=== PATIENT | male | born 1970 | race Hispanic/Latino ===

== ENCOUNTER 2022-01-18 10:45 | Emergency (ER) | payer BC, OTHER ==
[~2022-01-18] VITALS: Ht 165.1 cm; Wt 93.4 kg
[2022-01-18] MEDS ORDERED: ACETAMINOPHEN 500 MG TABLET PO ONE (11:00)
[2022-01-18] MEDS ORDERED: TETANUS/DIPHTHERIA TOXOID [ADULT] 0.5 ML VIAL IM ONE (11:00)
[2022-01-18] MEDS ORDERED: 0.9%NACL 1000ML 1,000 ML IV ONE (11:00)
[2022-01-18 11:12] LABS: BASOPHILS % (AUTO) 0.4 % (0.0-5.0); EOSINOPHILS % (AUTO) 0.9 % (0.0-8.0); LYMPHOCYTES % (AUTO) 12.7 % (21.0-51.0); MEAN CORPUSCULAR HEMOGLOBIN 30.1 pg (27.0-33.0); MEAN CORPUSCULAR HGB CONC 34.4 g/dL (32.0-36.0); MEAN CORPUSCULAR VOLUME 87.6 fL (79-99); MONOCYTES % (AUTO) 7.5 % (3.0-13.0); NEUTROPHILS % (AUTO) 78.1 % (40.0-77.0); PLATELET COUNT (AUTO) 205 K/uL (130-400); RED BLOOD CELL COUNT(AUTO) 4.45 MIL/uL (4.50-6.20); RED CELL DISTRIBUTION WIDTH 12.5 % (11.0-15.5); WHITE BLOOD COUNT (AUTO) 11.3 K/uL (4.8-10.8)
[2022-01-18 11:19] LABS: POTASSIUM 3.7 mmol/L (3.5-5.1)
[2022-01-18 11:23] LABS: ALBUMIN 4.2 g/dL (3.5-5.0); BILIRUBIN,TOTAL 0.6 mg/dL (0.2-1.0); TOTAL PROTEIN, SERUM 7.6 g/dL (6.0-8.3)
[2022-01-18] MEDS ORDERED: CLINDAMYCIN IVPB 600MG/50ML 50 ML IV SCH (11:30)
[2022-01-18] MEDS ORDERED: LIDOCAINE HCL-MPF 2% 5ML VIAL ONE (11:43)
[2022-01-18] MEDS ORDERED: CLIN-141 PO (12:19)
[2022-01-18 12:21] VITALS: BP 135/74
== END 2022-01-18 12:57 | disposition home or self-care (01) ==
LOC: EDH 10:45
DX: L02.212 Cutaneous abscess of back [any part, except buttock and flank] (principal); E78.00 Pure hypercholesterolemia, unspecified; I10 Essential (primary) hypertension
CPT/HCPCS: 10060; 36415; 80053; 85025; 87070; 87076; 90471; 90714; 96361; 96374; 99284; J3490 ×2; J7030

== ENCOUNTER 2022-01-23 14:53 | Emergency (ER) | payer BC ==
[~2022-01-23 14:53] MED LIST: CLIN-141 PO
[2022-01-23 15:23] LABS: BASOPHILS % (AUTO) 0.4 % (0.0-5.0); EOSINOPHILS % (AUTO) 1.8 % (0.0-8.0); HEMATOCRIT 39.4 % (42-54); LYMPHOCYTES % (AUTO) 20.6 % (21.0-51.0); MEAN CORPUSCULAR HEMOGLOBIN 29.5 pg (27.0-33.0); MEAN CORPUSCULAR VOLUME 89.3 fL (79-99); MONOCYTES % (AUTO) 11.4 % (3.0-13.0); NEUTROPHILS % (AUTO) 65.3 % (40.0-77.0); PLATELET COUNT (AUTO) 268 K/uL (130-400); RED BLOOD CELL COUNT(AUTO) 4.41 MIL/uL (4.50-6.20); RED CELL DISTRIBUTION WIDTH 12.4 % (11.0-15.5); WHITE BLOOD COUNT (AUTO) 9.3 K/uL (4.8-10.8)
[2022-01-23] MEDS ORDERED: LIDOCAINE HCL 400MG/20ML VIAL ONE (15:23)
[2022-01-23 15:27] VITALS: BP 134/80
[2022-01-23 15:32] LABS: CREATININE 0.9 mg/dL (0.5-1.5)
[2022-01-23 15:37] LABS: ALBUMIN 3.7 g/dL (3.5-5.0); BILIRUBIN,TOTAL 0.3 mg/dL (0.2-1.0)
== END 2022-01-23 16:03 | disposition home or self-care (01) ==
LOC: EDH 14:53
DX: L02.212 Cutaneous abscess of back [any part, except buttock and flank] (principal); E78.00 Pure hypercholesterolemia, unspecified; I10 Essential (primary) hypertension
CPT/HCPCS: 10060; 36415; 80053; 85025; 99283; J3490

== ENCOUNTER 2022-01-25 07:25 | Emergency (ER) | payer BC ==
[2022-01-25 07:33] VITALS: BP 126/80
[2022-01-25] MEDS ORDERED: CEPH500B PO (07:49)
== END 2022-01-25 07:30 | disposition home or self-care (01) ==
LOC: EDH 07:25
DX: L02.212 Cutaneous abscess of back [any part, except buttock and flank] (principal); L25.8 Unspecified contact dermatitis due to other agents; T36.8X5A Adverse effect of other systemic antibiotics, initial encounter; E78.00 Pure hypercholesterolemia, unspecified; I10 Essential (primary) hypertension; Y92.89 Other specified places as the place of occurrence of the external cause

== ENCOUNTER 2024-10-16 15:00 | Inpatient (IN) | payer BC ==
[~2024-10-16] VITALS: Ht 165.1 cm; Wt 93.8 kg
[2024-10-16 15:02] VITALS: BP 150/79; PULSE 85; RESP 18; TEMP 98
[2024-10-16 15:07] LABS: BASOPHILS # (AUTO) 0.05 K/uL (0.00-0.20); BASOPHILS % (AUTO) 0.7 % (0.0-5.0); EOSINOPHILS # (AUTO) 0.14 K/uL (0.00-0.70); HEMATOCRIT 42.6 % (42-54); IMMATURE GRANULOCYTE ABSOLUTE 0.02 K/uL (0-1); LYMPHOCYTES # (AUTO) 2.2 K/uL (1.0-4.8); LYMPHOCYTES % (AUTO) 30.5 % (21.0-51.0); MEAN CORPUSCULAR HGB CONC 34.5 g/dL (32.0-36.0); MEAN CORPUSCULAR VOLUME 89.9 fL (79-99); MONOCYTES # (AUTO) 0.8 K/uL (0.1-1.0); MONOCYTES % (AUTO) 10.6 % (3.0-13.0); NEUTROPHILS % (AUTO) 55.9 % (40.0-77.0); PLATELET COUNT (AUTO) 208 K/uL (130-400); RED BLOOD CELL COUNT(AUTO) 4.74 MIL/uL (4.50-6.20); RED CELL DISTRIBUTION WIDTH 12.4 % (11.0-15.5); WHITE BLOOD COUNT (AUTO) 7.1 K/uL (4.8-10.8)
[2024-10-16 15:16] LABS: INR <= 0.93 (0.85-1.15); PROTHROMBIN TIME 10.3 SEC (9.6-11.6)
[2024-10-16 15:18] LABS: PARTIAL THROMBOPLASTIN TIME 28.5 SEC (26.3-35.5)
[2024-10-16 15:21] LABS: ALBUMIN 4.1 g/dL (3.5-5.0); BILIRUBIN,TOTAL 0.3 mg/dL (0.2-1.0); CREATININE 0.8 mg/dL (0.5-1.3); POTASSIUM 3.7 mmol/L (3.5-5.1); TOTAL PROTEIN, SERUM 7.5 g/dL (6.0-8.3)
--- NOTE | 2024-10-16 20:50 | EKG ---
[facility] Test Date: 2024-10-16 Test Time: 15:48:58 Pat Name: SIMI LAGUNA Department: Patient ID: [id number] Room: Gender: M Mobile Practice Lead: [id number] : 1970 Requested By: ELANA LIMON Order Number: [id number] Reading MD: Davida Armstrong Measurements Intervals [place] Rate: 82 P: 54 MS: 165 QRS: -61 QRSD: 94 T: 74 QT: 360 QTc: 422 Interpretive Statements Sinus rhythm Probable left atrial enlargement Inferior infarct, old No previous ECG available for comparison Electronically Signed On 10-19-2024 15:56:10 ASSESSMENT EXPERT by Davida Armstrong Please click the below link to view image of tracing.
--- NOTE | 2024-10-19 08:42 | NUR ---
RE: EKG REPORTED EKG RESULTS TO DR LEE, NO NEW ORDERS RECEIVED.
[2024-10-20] VITALS (23 sets, daily range): BP systolic 129–162; BP diastolic 70–90; PULSE 21–108; RESP 14–19; TEMP 94.3–100; O2SAT 96–97
[2024-10-20] MEDS: BUPIvacaine/PF 0.5% 30ML VIAL ONE
[2024-10-20] MEDS: LIDOCAINE 1%-EPI 1:100,000 20 ML VIAL ONE
[2024-10-20] MEDS: LIDOCAINE HCL 1% 10 ML VIAL ONE
[2024-10-20] MEDS ORDERED: BUPIvacaine/PF 0.25% 30ML VIAL IJ ONE (07:42)
[2024-10-20] MEDS: LACTATED RINGERS 1000ML 1,000 ML IV ONE (08:11)
[2024-10-20] MEDS ORDERED: GLYCOPYRROLATE 0.2 MG/ML 5 ML VIAL ONE (08:11)
[2024-10-20] MEDS ORDERED: ondanSETRON 4MG INJ ONE (08:11)
[2024-10-20] MEDS ORDERED: LIDOCAINE PF 100MG/5ML (2%) SYRINGE 5ML ONE (08:11)
[2024-10-20] MEDS: MEROPENEM 1 GM VIAL ONE (08:11)
[2024-10-20] MEDS ORDERED: proPOFol 10 MG/ML 20ML VIAL IV ONE (08:11)
[2024-10-20] MEDS ORDERED: NEOSTIGMINE METHYLSULFATE 1MG/ML IV ONE (08:11)
[2024-10-20] MEDS ORDERED: dexaMETHasone SOD PHOSPHATE 10MG/ML 1ML VIAL ONE (08:11)
[2024-10-20] MEDS ORDERED: rocuRONium bROMide 10MG/1ML 5ML VL ONE ×2 (08:12→11:27)
[2024-10-20] MEDS ORDERED: FENTanyl CITRate PF 50 MCG/1 ML 5ML AMP IV ONE (08:12)
[2024-10-20] MEDS ORDERED: MIDAZOLAM HCL 1 MG/ML 2ML VIAL ONE (08:12)
[2024-10-20] MEDS ORDERED: ATOR10TA69 PO (09:12)
[2024-10-20] MEDS ORDERED: AMOX1TAB16 PO (09:12)
[2024-10-20] MEDS ORDERED: LOSA100T59 PO (09:12)
[2024-10-20] MEDS ORDERED: AMLO2.5T4 PO (09:12)
[2024-10-20] MEDS ORDERED: ePHEDrine SULFate 50 MG/ML AMPULE ONE (09:19)
[2024-10-20] MEDS ORDERED: FENTanyl CITRate PF 50 MCG/1 ML 2ML VIAL ONE ×3 (10:15→12:10)
[2024-10-20] MEDS ORDERED: phenylEPHRINE HCL 10 MG/ML 1ML VIAL IV ONE (11:00)
--- NOTE | 2024-10-20 12:57 | OP ---
Operative Note: DATE OF PROCEDURE: 10/20/24 SURGEON: ELANA LIMON MD REEL OPERATOR: None ANESTHESIA: General ANESTHESIOLOGIST/COLLAR POINTER: COLLAR POINTER PREOPERATIVE DIAGNOSIS: Chronic diverticulitis POSTOPERATIVE DIAGNOSIS: Chronic diverticulitis PROCEDURE: Robotic low anterior resection Omental flap creation Systemic ICG for assessment of anastomotic grafts Flexible sigmoidoscopy for anastomotic leak test ESTIMATED BLOOD LOSS: Minimal INDICATIONS: Mr. Sims is a very pleasant 54-year-old male with a long duration of symptomatic diverticulitis which was affecting his quality of life and thus he was offered surgical management. Complications, alternatives, risk and benefits of the procedure were discussed and include but not limited to infection, bleeding, injury to surrounding structures such as blood vessels nerves and other organs, anastomotic leak, sepsis, need for stoma, poor bowel function, recurrent disease as well as the need for additional procedures. The patient voiced complete understanding and wished to proceed with surgery. All of his questions were answered to his satisfaction. We marked the patient for a possible diverting stoma in the preoperative area. DESCRIPTION OF PROCEDURE: After informed consent was obtained, the patient was taken to the operating room and laid in the supine position. Once general endotracheal anesthesia was o btained, patient was carefully placed into the lithotomy position. Next the abdomen was prepped and draped in the usual sterile fashion. A time-out was performed to confirm the correct patient procedure. Next a Veress needle was inserted and confirmed to be intra-abdominal with a saline drop test. Pneumoperitoneum was obtained. We then placed an 8 mm trocar followed by insertion of the camera. The abdomen was inspected there was no significant findings other than the distal sigmoid colon adherent to the left pelvic sidewall. There was also a distal sigmoid tattoo. We then placed the remaining trocars and a diagonal fashion from the right lower quadrant to left upper quadrant. We then made a Pfannenstiel incision followed by placement of a wound protector. We then began mobilization of the sigmoid colon and a lateral to medial manner. The colon was firmly adherent to left pelvic sidewall. We carefully took this area down and then located left ureter which was identified and protected throughout the entirety of the case. Once this was done we began to isolate the ROSA MARIA pedicle. During this mobilization in the presacral space there was noted to be a small superficial cautery injury to the internal iliac artery. There was no bleeding from this area. We then continued isolation ROSA MARIA pedicle and once isolated taken with a white load stapler. We then mobilized the upper rectum in the presacral space. Once this was done we then located an area of the proximal rectum and took the mesorectum up to this area. We then took the mesentery up to a healthy portion of the sigmoid colon. Once this was done systemic ICG was given intravenously we then transected the upper rectum and a well-perfused area with a blue load stapler. We then made a colotomy followed by placement of a two nine EEA anvil in the antimesenteric aspect of the sigmoid colon, this was somewhat difficult due to the numerous diverticulum throughout the entire colon. Once this was done we then transected the sigmoid colon with a blue load stapler. The specimen was extracted. We then irrigated the pelvis and dissection bed and confirmed hemostasis. We then again check the area of the very superficial cautery injury to the iliac artery. Again there was no bleeding and this was a very superficial burn. I discussed the case over the phone with the vascular surgeon who suggested to raise the blood pressure to confirm no bleeding from this area. The patient's systolic blood pressure control raised to 170 mmHg and this area was closely observed. Again there was no evidence of bleeding and the Surgicel was placed over the area. We then performed a side and staple anastomosis taking great caution to avoid any diverticulum to be within the staple line. Once this was done with any then performed an anastomotic leak test with saline in the pelvis. There was no evidence of leak. We then performed a flexible sigmoidoscopy and insufflated until air was expressed from the anus. There was no evidence of any leak. We then oversewed the area with a running V lock suture. We then placed FloSeal and hemostatic powder on top of the prior placed Surgicel. We also placed hemostatic powder in the resection bed and pelvis. We created an omental flap and this was placed over the anastomosis. We then left a drain into the pelvis. Hemostasis was confirmed. We then removed all the trocars and the 12 mm port site was closed with a Vicryl stitch. We then removed the wound protector and changed gloves. The Pfannenstiel fascia was closed with PDS sutures. We then irrigated the wound with both saline and Betadine solution. We then closed the skin incision two Monocryl sutures and Dermabond was placed to the sterile dressing. The drain was secured in place. The patient tolerated the procedure well was taken to the recovery room in stable condition. I discussed the above in great detail including the small cautery her to the artery with the . She voiced understanding and appreciation for her care. All of her questions were answered to her satisfaction. Complications none Blood loss minimal Specimens: Sigmoid colon and upper rectum All counts were reported as correct x2 by nursing staff ELANA LIMON MD Oct 20, 2024 12:57
[2024-10-20] MEDS: MEPERIDINE-PF 50 MG/ML SYG ONE (13:17)
--- NOTE | 2024-10-20 14:36 | CONS ---
[facility] CONSULTATION NOTE Date of Service: Oct 20, 2024 Reason for Consultation: [ ] Medical management Requesting Physician: [ ] Dr. Cano HISTORY OF PRESENT ILLNESS: [ ] This is a 54-year-old with a significant medical history of hypertension hyperlipidemia and chronic diverticulosis was recently treated for diverticulitis with antibiotics. Given the patient has diverticular disease; The patient underwent robotic low anterior resection omental flap creation per . Patient is post day one 0. [facility] hospitalist was consulted for medical management. The patient was seen on the floor he open eyes on verbal stimuli. Patient reports having pain to surgical site. Encouraged patient to ambulate in do IS while awake. REVIEW OF SYSTEMS A14 point ROS was obtained on relevant positives was documented otherwise RoS negative PAST MEDICAL HISTORY: [ ] Hypertension hyperlipidemia Chronic diverticulitis PAST SURGICAL HISTORY: [ ] none PAST SOCIAL HISTORY: [ ] Denies smoking tobacco products and alcohol use FAMILY HISTORY: [ ] Noncontributory Coded Allergies: ciprofloxacin (Unverified Allergy, Unknown, 10/16/24) clindamycin (Unverified Allergy, Unknown, 10/16/24) PHYSICAL EXAM GENERAL APPEARANCE: The patient is awake, alert, and oriented, in no acute cardiopulmonary distress. NEUROLOGICAL: Cranial nerves II-XII grossly intact. Motor is 5/5 in bilateral upper and lower extremities proximal to distal. No sensory deficits. HEENT: Face is symmetric. Pupils are equal and reactive. Extraocular movements are intact. NECK: Supple. No JVD. No thyromegaly. No submental, submandibular, pre- /postauricular, occipital or supraclavicular lymphadenopathy. CHEST: Normal chest expansion. No Telemetry. LUNGS: Absence of any rales, rhonchi or any wheezing. CARDIOVASCULAR: Regular. S1 and S2 normal. No appreciable rubs, murmurs or gallops. ABDOMEN: Soft, nontender, and nondistended. There is no rebound, voluntary guarding, or rigidity. : Deferred. [place] present to gravity EXTREMITIES: Non-edematous and not cyanotic. No clubbing. Good capillary re fill. SKIN: No skin breakdown. X5 score incision left lower quad SUMANTH drain with serosanguineous output Vital Sign (Last 24 Hours) 10/20/24 10/20/24 12:45 13:45 Temp 97.2 Pulse 77 Resp 15 B/P (MAP) 141/81 Pulse Ox 98 O2 Delivery Nasal Cannula O2 Flow Rate 3.0 LABS: DIAGNOSTICS / RADIOLOGY: [ ] ASSESSMENT: chronic diverticulitis status post robotic low anterior resection omental flap creation chronic problems: Hypertension hyperlipidemia PLAN: Admit: medical surgical floor condition: fair Status: full code Diet: CLD IVF:NS at 50 ml/hr Consultants hospitalist for medical management. s/p robotic low anterior resection, omental flap will cont with local incision care: x5 site with dermabond and monitor SUMANTH drain output encouraged early ambulation and IS usage while awake will follow Dr Malagon post operative recommendations [place] care: monitor output Labs cbc, cmp, mag+ in am Replace electrolytes as needed as per protocol to keep potassium above 4.0 magnesium 2.0. Home Medication resumed: Norvasc 2.5 mg po daily, losartan 100 mg po am atorvastatin 10 mg po Hs PRN: MEDICATIONS Tylenol 650 mg po every 4 hrs for fever Zofran 4 mg IV every 6 hrs for n/v Hydralazine 5 mg IV every 4 hrs systolic pressure > 160 PT services to eval and treat Pain management: Beecher as needed for pain and gabapentin Supportive measures: DVT ppx with lovenox , GI ppx all questions answered time spent: > 35 min Supervising MD: Dr. Blackman c/d thank you for consulting [facility] hospitalist group for medical management. This document was generated in part using voice recognition software, occasional wrong word or sound alike substitutions may have occurred due to the inherent limitations of voice recognition software. Read the chart carefully and recognize using context, where the substitutions have occurred. Although every effort was made to edit the content, car shakeout operator and typing errors may occur ADVANCED CARE PLANNING 1. Which of the following were discussed? Hospice Care - Yes / No Therapeutic options - Yes / No Advance Directives - Yes / No Other discussions - 2. Discussed with who? 3. Voluntary nature of this service was explained to the patient? Yes / No 4. Amount of time spent - 5. Reviewed by Physician? (if this service was performed by NPP) Yes / No ATTESTATION BY PHYSICIAN I have seen and examined the patient. I reviewed the documentation, medical decision making, and treatment plan as noted by the mid-level provider above. I agree with the findings and plan of care. BLACKMAN, MOISÉS HARP MD, NP Oct 20, 2024 14:36
[2024-10-20] MEDS: SUGAMMADEX SODIUM 200 MG/2 ML VIAL IV ONE (14:37)
[2024-10-20] MEDS: INDOCYANINE GREEN 25 MG VIAL IJ ONE (14:37)
[2024-10-20] MEDS: GABApentin 100 MG CAPSULE PO SCH (14:41)
[2024-10-20] MEDS: LACTATED RINGERS 1000ML 1,000 ML IV SCH (14:41)
[2024-10-20] MEDS ORDERED: hydrALAZine 20MG/ML VIAL IV PRN (15:00)
[2024-10-20] MEDS: hydroMORPHone 0.5 MG SYG (0.5MG/0.5ML) IVP PRN (17:09)
--- NOTE | 2024-10-20 17:14 | NUR ---
PAIN MEDICATION PATIENT C/O ABDOMINAL PAIN, RATING PAIN A 9. OFFERRED TO GIVE PAIN MEDICATION AND ACCEPTED. BEFORE ADMINISTERING DILAUTID ORDERED BY MD, PATIENT REFUSED STATING "STRONG" MEDICATIONS KNOCK HIM OUT AND WONT BE ABLE TO WAKE UP UNTIL TOMORROW AT 2PM. STATES IS VERY SENSITIVE TO STRONG MEDICATIONS AND REFUSED DILAUTID. PATIENT REQUESTING TYLENOL OR SOMETHING LESS EFFECTIVE. ADVISED HAS TYLENOL ON FILE. DILAUTID WASTED AND WITNESSED BY JOHN ANDRADE CLINICAL PACU NURSE. NONE GIVEN AT THIS TIME. WILL CONTINUE TO MONITOR.
[2024-10-20] MEDS: acetaMINOPHEN 325 MG TAB PO PRN (17:24)
[2024-10-20] MEDS: atorVAStatin 10 MG TABLET PO SCH (19:20)
[2024-10-20] MEDS: atorVAStatin 10 MG TABLET ONE (19:21)
[2024-10-20] MEDS: ondanSETRON 4MG INJ IVP PRN (19:55)
[2024-10-20] MEDS: OXYcodONE HCL 5 MG TAB PO PRN (20:47)
[2024-10-20] MEDS: INSULIN humuLIN R 100 UNIT/ML 3ML SQ PRN (22:27)
[2024-10-21] VITALS (7 sets, daily range): BP systolic 137–169; BP diastolic 82–94; PULSE 91–105; RESP 18–20; TEMP 97.9–99.7; O2SAT 96–97
--- NOTE | 2024-10-21 00:56 | NUR ---
nursing pm note patient alert and oriented times 4. at bedside. plan of care discussed with them and they verbalized understanding. patient walked around outside with his around the nurse's station. He is passing gas. His 5 abdominal incisions with Dermabond are clean, dry, intact open to air. The left abdomen incision with the billy drain has minimal drainage on the dressing. The billy drain is to bulb suction. Encouraged patient to use the IS and he refuses. He also waits until his pain is at a 10 to ask for pain medications because he "does not want to be knocked out." He asks continuously for his billy to be drained, for his fontana to be emptied, and his socks to be "fixed." He was upset at the beginning of the shift saying that his scd's need to come off and he does not want the IV fluids. I encouraged him to walk and took him back to bed. Explained to him about the benefits of the scd's and fluids and he agreed to have them on tonight. He has slept about 4 hours tonight intermittently after the dilaudid was administered. Call light within reach, bed alarm on, 2 side rails up. will continue to monitor patient.
[2024-10-21 04:49] LABS: BASOPHILS # (AUTO) 0.01 K/uL (0.00-0.20); BASOPHILS % (AUTO) 0.1 % (0.0-5.0); HEMATOCRIT 42.7 % (42-54); IMMATURE GRANULOCYTE ABSOLUTE 0.07 K/uL (0-1); LYMPHOCYTES # (AUTO) 1.3 K/uL (1.0-4.8); LYMPHOCYTES % (AUTO) 8.4 % (21.0-51.0); MEAN CORPUSCULAR HEMOGLOBIN 30.8 pg (27.0-33.0); MEAN CORPUSCULAR HGB CONC 35.1 g/dL (32.0-36.0); MEAN CORPUSCULAR VOLUME 87.7 fL (79-99); MONOCYTES # (AUTO) 1.4 K/uL (0.1-1.0); MONOCYTES % (AUTO) 8.6 % (3.0-13.0); NEUTROPHILS # (AUTO) 12.9 K/uL (1.8-7.7); NEUTROPHILS % (AUTO) 82.5 % (40.0-77.0); PLATELET COUNT (AUTO) 227 K/uL (130-400); RED BLOOD CELL COUNT(AUTO) 4.87 MIL/uL (4.50-6.20); RED CELL DISTRIBUTION WIDTH 12.3 % (11.0-15.5); WHITE BLOOD COUNT (AUTO) 15.7 K/uL (4.8-10.8)
[2024-10-21 04:58] LABS: CREATININE 0.9 mg/dL (0.5-1.3); POTASSIUM 4.2 mmol/L (3.5-5.1)
[2024-10-21] MEDS: ENOXAPARIN SODIUM 40 MG/0.4 ML SYRINGE SQ SCH (08:19)
[2024-10-21] MEDS: LoSARTan 100 MG TABLET PO SCH (08:19)
[2024-10-21] MEDS: amLODIPine 2.5 MG TAB PO SCH ×2 (08:20→20:52)
--- NOTE | 2024-10-21 08:35 | NUR ---
[facility] CATHETER PATIENT HAS VOIDED 500MLS ON HIS OWN SINCE FC REMOVAL THIS AM.
--- NOTE | 2024-10-21 08:59 | PN ---
COLORECTAL PROGRESS NOTE Date of Visit: Oct 21, 2024 Time of Visit: 08:56 Events / Notes: 54 yo male with hx of chronic diverticulitis who underwent a robotic low anterior resection with omental flap cration, systemic ICG for assessment of anastomotic grafts and flexible sigmoidoscopy for anastomotic leak test. On exam patient was ambulating with steady gait in room. Respirations even and unlabored. BBS clear. Abdomen soft and not distended. Active BS present. Incisions D&I botany professor with dermabond. SUMANTH drain with small amount of sanguinous discharge. He reports voiding well. He has tolerated clear fluids without any n/v. Will advance diet. Encouraged ambulation and I/S exercises. Patient agreed. Review of Systems: CONSTITUTIONAL: No malaise or change in sensation of wellbeing. ENMT: No rhinorrhea, otorrhea, sinus pain, ear ache. CARDIOVASCULAR: No angina, palpitations, orthopnea or paroxysmal dyspnea. RESPIRATORY: No SOB. GASTROINTESTINAL: No abdominal pain, nausea, vomiting, diarrhea, hematemesis, melena or change in the patient's habitual bowel movements consistency/number. GENITOURINARY: No dysuria, hematuria or change in bladder continence. MUSCULOSKELETAL: No new muscle pain or decrease in muscular strength. No new joint swelling, redness or tenderness. SKIN: No new rash. Physical Exam: GEN: Awake, alert, oriented in person, time and place, and in no acute distress. HEENT:No sinus tenderness. Tympanic membranes were not examined. No rhinorrhea. Oral pharyngeal mucosa is pink, moist and within normal limits. CHEST: Inspection, palpation of the chest were unremarkable. Lung auscultation revealed normal breath sounds bilaterally. CARDIAC: Heart sounds are regular. Normal S1, S2. ABD: Soft, non-tender and not distended. No peritoneal signs on palpation. No organomegaly. Normal bowel sounds. SUMANTH with sanguinous discharge EXT: No cyanosis or clubbing. No edema. SKIN: Intact. No rashes. JOINTS: No evidence of synovitis or acute arthritis. NEURO: Alert and oriented to name, place and person. Cranial nerve examination is unremarkable. No focal motor deficits. Normal speech. Gait is normal. Strength is normal. Vital Signs (last 8hr) Date Time Temp Pulse Resp B/P (MAP) Pulse Ox O2 Delivery O2 Flow Rate FiO2 10/21/24 08:00 97.9 105 18 159/94 97 Room Air 10/21/24 08:00 97 Room Air* 0 21 10/21/24 03:25 99.7 100 18 154/82 94 Room Air Laboratory: [ ] Laboratory: Test 10/21/24 04:29 10/20/24 20:07 Range/Units White Blood Count 15.7 H 4.8-10.8 K/uL Red Blood Count 4.87 4.50-6.20 MIL/uL Hemoglobin 15.0 14.0-18.0 g/dL Hematocrit 42.7 42-54 % Mean Corpuscular Volume 87.7 79-99 fL Mean Corpuscular Hemoglobin 30.8 27.0-33.0 pg Mean Corpuscular Hemoglobin Concent 35.1 32.0-36.0 g/dL Red Cell Distribution Width 12.3 11.0-15.5 % Platelet Count 227 130-400 K/uL Mean Platelet Volume 9.8 7.5-10.5 fL Immature Granulocyte % (Auto) 0.4 0-1 % Neutrophils (%) (Auto) 82.5 H 40.0-77.0 % Lymphocytes (%) (Auto) 8.4 L 21.0-51.0 % Monocytes (%) (Auto) 8.6 3.0-13.0 % Eosinophils (%) (Auto) 0.0 0.0-8.0 % Basophils (%) (Auto) 0.1 0.0-5.0 % Neutrophils # (Auto) 12.9 H 1.8-7.7 K/uL Lymphocytes # (Auto) 1.3 1.0-4.8 K/uL Monocytes # (Auto) 1.4 H 0.1-1.0 K/uL Eosinophils # (Auto) 0.00 0.00-0.70 K/uL Basophils # (Auto) 0.01 0.00-0.20 K/uL Absolute Immature Granulocyte (auto 0.07 0-1 K/uL Nucleated Red Blood Cells 0.0 0.0-0.19 % White Cell Morphology Comment See comments Sodium Level 136 136-145 mmol/L Potassium Level 4.2 3.5-5.1 mmol/L Chloride Level 99 L 101-111 mmol/L Carbon Dioxide Level 27 21-32 mmol/L Blood Urea Nitrogen 10 7-18 mg/dL Creatinine 0.9 0.5-1.3 mg/dL Glomerular Filtration Rate Calc 102 >90 mL/min Random Glucose 125 H 70-105 mg/dL Total Calcium 9.1 8.5-10.1 mg/dL Magnesium Level 2.00 1.80-2.40 mg/dL Whole Blood Glucose 126 H 70-110 MG/DL Current Medications Medications (Trade) Dose Ordered Sig/Devaughn Route PRN Reason Start Time Stop Time Status Last Admin Dose Admin Acetaminophen (TYLenol 325MG TAB) 650 mg Q6H PRN PO TEMPERATURE GREATER THAN 101 10/20/24 13:00 11/19/24 12:59 10/20/24 17:24 650 MG Amlodipine Besylate (NorvASC 2.5MG TAB) 2.5 mg DAILY PO 10/21/24 09:00 10/21/24 08:28 DC Amlodipine Besylate (NorvASC 2.5MG TAB) 2.5 mg HS PO 10/21/24 21:00 11/20/24 08:59 Atorvastatin Calcium (LIPItor 10MG) 10 mg HS PO 10/20/24 21:00 11/19/24 20:59 10/20/24 19:20 10 MG Enoxaparin Sodium (Lovenox) 40 mg DAILY SQ 10/21/24 09:00 11/20/24 08:59 10/21/24 08:19 40 MG Gabapentin (NEURontin 100 mg CAP) 200 mg TID PO 10/20/24 14:00 11/19/24 13:59 10/21/24 08:19 200 MG Hydralazine HCl (APRESOLine 20MG INJ) 5 mg Q4H PRN IV ADMINISTER FOR SBP > 160 10/20/24 15:00 11/19/24 14:59 Hydromorphone HCl (DiLAUDid 0.5MG INJ) 0.5 mg Q4H PRN IVP SEVERE PAIN (7-10) 10/20/24 13:00 10/25/24 12:59 10/20/24 22:43 0.5 MG Insulin Human Regular (humuLIN R 100 UNIT/ML 3ML) AD PRN SQ SLIDING SCALE COVERAGE 10/20/24 13:00 11/19/24 12:59 Lactated Ringer's 1,000 ml @ 50 mls/hr Q20H IV 10/20/24 13:00 11/19/24 12:59 10/21/24 06:25 50 MLS/HR Losartan Potassium (CozAAR 100MG TAB) 100 mg DAILY PO 10/21/24 09:00 11/20/24 08:59 10/21/24 08:19 100 MG Ondansetron HCl (zoFRAN 4MG INJ) 4 mg Q4H PRN IVP NAUSEA 10/20/24 13:00 11/19/24 12:59 10/20/24 19:55 4 MG Oxycodone HCl (ROXicoDONE) 5 mg Q4H PRN PO MODERATE PAIN (4-6) 10/20/24 13:00 10/27/24 12:59 10/21/24 06:25 5 MG Assessment: [Chronic Diverticulitis ] Plan: [Advance diet Encourage ambulation TID Encourage I/S exercises Pain meds as needed Antiemetics prn Please call with questions, concerns, and change in clinical status Plan for disposition in the next 24-48 hrs from colorectal standpoint Appreciate hospitalist's assistance in our patient's care. ] LOLY KAPLAN NP Oct 21, 2024 08:59
--- NOTE | 2024-10-21 13:46 | NUR ---
CM Nurse assessment Met with patient at bedside. Pt lives with and feels safe in his home environment. Pt is independent, works and drives. Pt is a postop patient of Dr barths. Patient does not have any HHS. Pharmacy-[facility]. DSG plan-home Addendum: 10/21/24 at 1351 by LUCILLE RAMOS RN CM Amended: Links added.
[2024-10-22] VITALS (8 sets, daily range): BP systolic 114–140; BP diastolic 72–85; PULSE 81–100; RESP 16–18; TEMP 97.4–99.6; O2SAT 94–95
[2024-10-22 05:13] LABS: BASOPHILS # (AUTO) 0.04 K/uL (0.00-0.20); BASOPHILS % (AUTO) 0.4 % (0.0-5.0); EOSINOPHILS # (AUTO) 0.05 K/uL (0.00-0.70); EOSINOPHILS % (AUTO) 0.5 % (0.0-8.0); HEMATOCRIT 40.9 % (42-54); IMMATURE GRANULOCYTE ABSOLUTE 0.04 K/uL (0-1); LYMPHOCYTES # (AUTO) 2.8 K/uL (1.0-4.8); MEAN CORPUSCULAR HEMOGLOBIN 30.8 pg (27.0-33.0); MEAN CORPUSCULAR HGB CONC 34.7 g/dL (32.0-36.0); MEAN CORPUSCULAR VOLUME 88.7 fL (79-99); MONOCYTES # (AUTO) 1.2 K/uL (0.1-1.0); MONOCYTES % (AUTO) 10.8 % (3.0-13.0); NEUTROPHILS # (AUTO) 6.9 K/uL (1.8-7.7); NEUTROPHILS % (AUTO) 62.9 % (40.0-77.0); PLATELET COUNT (AUTO) 200 K/uL (130-400); RED BLOOD CELL COUNT(AUTO) 4.61 MIL/uL (4.50-6.20); RED CELL DISTRIBUTION WIDTH 12.7 % (11.0-15.5)
[2024-10-22 05:28] LABS: CREATININE 0.8 mg/dL (0.5-1.3); MAGNESIUM 2.3 mg/dL (1.80-2.40)
[2024-10-23] VITALS: BP 113/74; PULSE 71; RESP 20; TEMP 98.5
[2024-10-23 04:00] VITALS: BP 131/76; PULSE 66; RESP 18; TEMP 98.3
[2024-10-23 05:43] LABS: BASOPHILS # (AUTO) 0.05 K/uL (0.00-0.20); BASOPHILS % (AUTO) 0.5 % (0.0-5.0); EOSINOPHILS # (AUTO) 0.12 K/uL (0.00-0.70); EOSINOPHILS % (AUTO) 1.3 % (0.0-8.0); HEMATOCRIT 37.3 % (42-54); IMMATURE GRANULOCYTE ABSOLUTE 0.04 K/uL (0-1); LYMPHOCYTES # (AUTO) 2.5 K/uL (1.0-4.8); LYMPHOCYTES % (AUTO) 26.1 % (21.0-51.0); MEAN CORPUSCULAR HEMOGLOBIN 30.8 pg (27.0-33.0); MEAN CORPUSCULAR HGB CONC 34.6 g/dL (32.0-36.0); MONOCYTES % (AUTO) 10.5 % (3.0-13.0); NEUTROPHILS # (AUTO) 5.8 K/uL (1.8-7.7); NEUTROPHILS % (AUTO) 61.2 % (40.0-77.0); PLATELET COUNT (AUTO) 185 K/uL (130-400); RED BLOOD CELL COUNT(AUTO) 4.19 MIL/uL (4.50-6.20); RED CELL DISTRIBUTION WIDTH 12.3 % (11.0-15.5); WHITE BLOOD COUNT (AUTO) 9.5 K/uL (4.8-10.8)
[2024-10-23 05:50] LABS: CREATININE 0.7 mg/dL (0.5-1.3); MAGNESIUM 2.1 mg/dL (1.80-2.40); POTASSIUM 4.3 mmol/L (3.5-5.1)
[2024-10-23 08:02] VITALS: BP 118/80; PULSE 87; RESP 16; TEMP 98.3
--- NOTE | 2024-10-23 09:38 | PN ---
COLORECTAL PROGRESS NOTE Date of Visit: Oct 23, 2024 Time of Visit: 09:35 Events / Notes: 54 yo male with hx of chronic diverticulitis who underwent a robotic low anterior resection with omental flap cration, systemic ICG for assessment of anastomotic grafts and flexible sigmoidoscopy for anastomotic leak test. On exam patient was ambulating with steady gait in room. Respirations even and unlabored. BBS clear. Abdomen soft and not distended. Active BS present. Incisions D&I rotary drum tanner with dermabond. SUMANTH drain with small amount of sanguinous discharge. He reports voiding well. He has tolerated clear fluids without any n/v. Will advance diet. Encouraged ambulation and I/S exercises. Patient agreed. 10/22/24: LE for visit at 9:15am. Patient was ambulating in room with steady gait in no acute distress. He reported abdominal pain is slightly less today. BBS are clear. Abdomen is soft and not distended; tenderness to LLQ. Incision D&I rotary drum tanner. SUMANTH with serosanguinous discharge. Will continue to monitor. Plan for discharge from colorectal standpoint tomorrow. 10/23/24. No acute events overnight. Patient's VSS. He is tolerating regular diet. Abd is soft. He is passing flatus and has had a bm. Home care instructions with ER warning given to patient. He is to f/u at [facility] on 11/03/24 @ 9:30am at [facility] office. Patient agreed. Review of Systems: CONSTITUTIONAL: No malaise or change in sensation of wellbeing. ENMT: No rhinorrhea, otorrhea, sinus pain, ear ache. CARDIOVASCULAR: No angina, palpitations, orthopnea or paroxysmal dyspnea. RESPIRATORY: No SOB. GASTROINTESTINAL: No abdominal pain, nausea, vomiting, diarrhea, hematemesis, melena or change in the patient's habitual bowel movements consistency/number. GENITOURINARY: No dysuria, hematuria or change in bladder continence. MUSCULOSKELETAL: No new muscle pain or decrease in muscular strength. No new joint swelling, redness or tenderness. SKIN: No new rash. Physical Exam: GEN: Awake, alert, oriented in person, time and place, and in no acute distress. HEENT:No sinus tenderness. Tympanic membranes were not examined. No rhinorrhea. Oral pharyngeal mucosa is pink, moist and within normal limits. CHEST: Inspection, palpation of the chest were unremarkable. Lung auscultation revealed normal breath sounds bilaterally. CARDIAC: Heart sounds are regular. ABD: Soft, non-tender and not distended. No peritoneal signs on palpation. No organomegaly. Normal bowel sounds. SUMANTH with serous discharge. Incisions D&I rotary drum tanner with dermabond. EXT: No cyanosis or clubbing. No edema. SKIN: Intact. No rashes. JOINTS: No evidence of synovitis or acute arthritis. NEURO: Alert and oriented to name, place and person. Cranial nerve examination is unremarkable. No focal motor deficits. Normal speech. Gait is normal. Strength is normal. Vital Signs (last 8hr) Date Time Temp Pulse Resp B/P (MAP) Pulse Ox O2 Delivery O2 Flow Rate FiO2 10/23/24 08:02 98.2 87 16 118/80 96 10/23/24 04:00 98.2 66 18 131/76 96 Room Air Laboratory: [ ] Laboratory: Test 10/23/24 05:20 10/23/24 05:11 Range/Units White Blood Count 9.5 4.8-10.8 K/uL Red Blood Count 4.19 L 4.50-6.20 MIL/uL Hemoglobin 12.9 L 14.0-18.0 g/dL Hematocrit 37.3 L 42-54 % Mean Corpuscular Volume 89.0 79-99 fL Mean Corpuscular Hemoglobin 30.8 27.0-33.0 pg Mean Corpuscular Hemoglobin Concent 34.6 32.0-36.0 g/dL Red Cell Distribution Width 12.3 11.0-15.5 % Platelet Count 185 130-400 K/uL Mean Platelet Volume 9.9 7.5-10.5 fL Immature Granulocyte % (Auto) 0.4 0-1 % Neutrophils (%) (Auto) 61.2 40.0-77.0 % Lymphocytes (%) (Auto) 26.1 21.0-51.0 % Monocytes (%) (Auto) 10.5 3.0-13.0 % Eosinophils (%) (Auto) 1.3 0.0-8.0 % Basophils (%) (Auto) 0.5 0.0-5.0 % Neutrophils # (Auto) 5.8 1.8-7.7 K/uL Lymphocytes # (Auto) 2.5 1.0-4.8 K/uL Monocytes # (Auto) 1.0 0.1-1.0 K/uL Eosinophils # (Auto) 0.12 0.00-0.70 K/uL Basophils # (Auto) 0.05 0.00-0.20 K/uL Absolute Immature Granulocyte (auto 0.04 0-1 K/uL Nucleated Red Blood Cells 0.0 0.0-0.19 % Sodium Level 141 136-145 mmol/L Potassium Level 4.3 3.5-5.1 mmol/L Chloride Level 105 101-111 mmol/L Carbon Dioxide Level 29 21-32 mmol/L Blood Urea Nitrogen 11 7-18 mg/dL Creatinine 0.7 0.5-1.3 mg/dL Glomerular Filtration Rate Calc 110 >90 mL/min Random Glucose 105 70-105 mg/dL Total Calcium 8.7 8.5-10.1 mg/dL Magnesium Level 2.10 1.80-2.40 mg/dL Whole Blood Glucose 101 70-110 MG/DL Current Medications Medications (Trade) Dose Ordered Sig/Devaughn Route PRN Reason Start Time Stop Time Status Last Admin Dose Admin Acetaminophen (TYLenol 325MG TAB) 650 mg Q6H PRN PO TEMPERATURE GREATER THAN 101 10/20/24 13:00 11/19/24 12:59 10/21/24 20:53 650 MG Amlodipine Besylate (NorvASC 2.5MG TAB) 2.5 mg DAILY PO 10/21/24 09:00 10/21/24 08:28 DC Amlodipine Besylate (NorvASC 2.5MG TAB) 2.5 mg HS PO 10/21/24 21:00 11/20/24 08:59 10/22/24 21:01 2.5 MG Atorvastatin Calcium (LIPItor 10MG) 10 mg HS PO 10/20/24 21:00 11/19/24 20:59 10/22/24 21:01 10 MG Enoxaparin Sodium (Lovenox) 40 mg DAILY SQ 10/21/24 09:00 11/20/24 08:59 10/23/24 08:22 40 MG Gabapentin (NEURontin 100 mg CAP) 200 mg TID PO 10/20/24 14:00 11/19/24 13:59 10/23/24 08:18 200 MG Hydralazine HCl (APRESOLine 20MG INJ) 5 mg Q4H PRN IV ADMINISTER FOR SBP > 160 10/20/24 15:00 11/19/24 14:59 Hydromorphone HCl (DiLAUDid 0.5MG INJ) 0.5 mg Q4H PRN IVP SEVERE PAIN (7-10) 10/20/24 13:00 10/25/24 12:59 10/22/24 22:48 0.5 MG Insulin Human Regular (humuLIN R 100 UNIT/ML 3ML) AD PRN SQ SLIDING SCALE COVERAGE 10/20/24 13:00 11/19/24 12:59 Lactated Ringer's 1,000 ml @ 50 mls/hr Q20H IV 10/20/24 13:00 11/19/24 12:59 10/23/24 05:58 50 MLS/HR Losartan Potassium (CozAAR 100MG TAB) 100 mg DAILY PO 10/21/24 09:00 11/20/24 08:59 10/23/24 08:18 100 MG Ondansetron HCl (zoFRAN 4MG INJ) 4 mg Q4H PRN IVP NAUSEA 10/20/24 13:00 11/19/24 12:59 10/20/24 19:55 4 MG Oxycodone HCl (ROXicoDONE) 5 mg Q4H PRN PO MODERATE PAIN (4-6) 10/20/24 13:00 10/27/24 12:59 10/21/24 14:20 5 MG Assessment: [Chronic Diverticulitis POD3 Patient has progressed well. VSS. No n/v. ABd is soft. He is passing flatus and bowel function is restored. All instructions with ER warnings explained. He may be discharged from colorectal standpoint. We will sign off on patient care. Appreciate hospitalist's assistance in our patient care. We will be available if needed. ] LOLY KAPLAN NP Oct 23, 2024 09:38
[2024-10-23 11:18] VITALS: BP 117/74; PULSE 67; RESP 16; TEMP 98.1
[2024-10-23 11:33] VITALS: O2SAT 97
--- NOTE | 2024-10-23 12:00 | NUR ---
The SUMANTH is removed intact. PIV catheter is also removed intact. Discharge instructions are given to the patient with is present. All questions are answered and the discharge packet is given to him. The patient denies pain. He is wheeled out of the hospital in a wheelchair and leaves by POV.
--- NOTE | 2024-10-25 20:32 | PN ---
COLORECTAL PROGRESS NOTE Date of Visit: Oct 22, 2024 Time of Visit: 09:15AM Events / Notes: 54 yo male with hx of chronic diverticulitis who underwent a robotic low anterior resection with omental flap cration, systemic ICG for assessment of anastomotic grafts and flexible sigmoidoscopy for anastomotic leak test. On exam patient was ambulating with steady gait in room. Respirations even and unlabored. BBS clear. Abdomen soft and not distended. Active BS present. Incisions D&I kera with dermabond. SUMANTH drain with small amount of sanguinous discharge. He reports voiding well. He has tolerated clear fluids without any n/v. Will advance diet. Encouraged ambulation and I/S exercises. Patient agreed. 10/22/24: LE for visit at 9:15am. Patient was ambulating in room with steady gait in no acute distress. He reported abdominal pain is slightly less today. BBS are clear. Abdomen is soft and not distended; tenderness to LLQ. Incision D&I security incident handler. SUMANTH with serosanguinous discharge. Will continue to monitor. Plan for discharge from colorectal standpoint tomorrow. Review of Systems: CONSTITUTIONAL: No malaise or change in sensation of wellbeing. ENMT: No rhinorrhea, otorrhea, sinus pain, ear ache. CARDIOVASCULAR: No angina, palpitations, orthopnea or paroxysmal dyspnea. RESPIRATORY: No SOB. GASTROINTESTINAL: No abdominal pain, nausea, vomiting, diarrhea, hematemesis, melena or change in the patient's habitual bowel movements consistency/number. GENITOURINARY: No dysuria, hematuria or change in bladder continence. MUSCULOSKELETAL: No new muscle pain or decrease in muscular strength. No new joint swelling, redness or tenderness. SKIN: No new rash. Physical Exam: GEN: Awake, alert, oriented in person, time and place, and in no acute distress. HEENT:No rhinorrhea. Oral pharyngeal mucosa is pink, moist and within normal limits. CHEST: Inspection, palpation of the chest were unremarkable. Lung auscultation revealed normal breath sounds bilaterally. CARDIAC: Heart sounds are regular. ABD: Soft, non-tender and not distended. No peritoneal signs on palpation. No organomegaly. Normal bowel sounds. SUMANTH with serosanguinous discharge. Incisions D&I kera with dermabond. EXT: No cyanosis or clubbing. No edema. SKIN: Intact. No rashes. JOINTS: No evidence of synovitis or acute arthritis. NEURO: Alert and oriented to name, place and person. Cranial nerve examination is unremarkable. No focal motor deficits. Normal speech. Gait is normal. Strength is normal. Laboratory: [ ] Current Medications Medications (Trade) Dose Ordered Sig/Devaughn Route PRN Reason Start Time Stop Time Status Last Admin Dose Admin Acetaminophen (TYLenol 325MG TAB) 650 mg Q6H PRN PO TEMPERATURE GREATER THAN 101 10/20/24 13:00 10/23/24 12:16 DC 10/21/24 20:53 650 MG Amlodipine Besylate (NorvASC 2.5MG TAB) 2.5 mg DAILY PO 10/21/24 09:00 10/21/24 08:28 DC Amlodipine Besylate (NorvASC 2.5MG TAB) 2.5 mg HS PO 10/21/24 21:00 10/23/24 12:16 DC 10/22/24 21:01 2.5 MG Atorvastatin Calcium (LIPItor 10MG) 10 mg HS PO 10/20/24 21:00 10/23/24 12:16 DC 10/22/24 21:01 10 MG Enoxaparin Sodium (Lovenox) 40 mg DAILY SQ 10/21/24 09:00 10/23/24 12:16 DC 10/23/24 08:22 40 MG Gabapentin (NEURontin 100 mg CAP) 200 mg TID PO 10/20/24 14:00 10/23/24 12:16 DC 10/23/24 08:18 200 MG Hydralazine HCl (APRESOLine 20MG INJ) 5 mg Q4H PRN IV ADMINISTER FOR SBP > 160 10/20/24 15:00 10/23/24 12:16 DC Hydromorphone HCl (DiLAUDid 0.5MG INJ) 0.5 mg Q4H PRN IVP SEVERE PAIN (7-10) 10/20/24 13:00 10/23/24 12:16 DC 10/22/24 22:48 0.5 MG Insulin Human Regular (humuLIN R 100 UNIT/ML 3ML) AD PRN SQ SLIDING SCALE COVERAGE 10/20/24 13:00 10/23/24 12:16 DC Lactated Ringer's 1,000 ml @ 50 mls/hr Q20H IV 10/20/24 13:00 10/23/24 12:16 DC 10/23/24 05:58 50 MLS/HR Losartan Potassium (CozAAR 100MG TAB) 100 mg DAILY PO 10/21/24 09:00 10/23/24 12:16 DC 10/23/24 08:18 100 MG Ondansetron HCl (zoFRAN 4MG INJ) 4 mg Q4H PRN IVP NAUSEA 10/20/24 13:00 10/23/24 12:16 DC 10/20/24 19:55 4 MG Oxycodone HCl (ROXicoDONE) 5 mg Q4H PRN PO MODERATE PAIN (4-6) 10/20/24 13:00 10/23/24 12:16 DC 10/21/24 14:20 5 MG Assessment: [Chronic Diverticulitis POD2 Patient is doing well. He is tolerating soft diet. No n/v. His VSS. Abd not distended but tenderness present. Encouraged ambulation. Will keep today and discharge in am if patient continues to progress as expected. Plan Keep soft diet Pain meds as needed Encourage ambulation and I/S exercises Please call with questions, concerns, and change in clinical status Appreciate hospitalist's assistance in our patient care ] LOLY KAPLAN NP Oct 25, 2024 20:32
== END 2024-10-23 12:15 | disposition home or self-care (01) | DRG 332 ==
LOC: DAHIP 10-20 06:34 → 4BH 10-20 14:00
PROVIDERS: ADMIT Surgery; ATTEND Surgery
PROC: 0DTP4ZZ Resection of Rectum, Percutaneous Endoscopic Approach (ICD-10-PCS; 2024-10-20)
PROC: 0DXU4ZW Transfer Omentum to Abdominal Region, Percutaneous Endoscopic Approach (ICD-10-PCS; 2024-10-20)
PROC: 8E0W4CZ Robotic Assisted Procedure of Trunk Region, Percutaneous Endoscopic Approach (ICD-10-PCS; 2024-10-20)
PROC: 4A1BXSH Monitoring of Gastrointestinal Vascular Perfusion using Indocyanine Green Dye, External Approach (ICD-10-PCS; 2024-10-20)
PROC: 0DJD8ZZ Inspection of Lower Intestinal Tract, Via Natural or Artificial Opening Endoscopic (ICD-10-PCS; principal; 2024-10-20 08:36)
DX: K57.32 Diverticulitis of large intestine without perforation or abscess without bleeding (principal); S35.511A Injury of right iliac artery, initial encounter; E78.5 Hyperlipidemia, unspecified; I10 Essential (primary) hypertension; X58.XXXA Exposure to other specified factors, initial encounter; Y93.89 Activity, other specified; Y92.89 Other specified places as the place of occurrence of the external cause; Y99.8 Other external cause status; Z79.899 Other long term (current) drug therapy
CPT/HCPCS: 36415; 45330; 80048; 80053; 82948; 83735; 85025; 85610; 85730; 86850; 86900; 86901; 88304; 88307; 93005; A4344; G0378; J1100; J1171; J1650; J2003; J2175; J2185; J2250; J2371; J2405; J2704; J2710; J3010; J3490; J7030; J7120; A4215; A4216; A4221; A4222; A4223; A4600; A4649; A4663; A4930; C1769; J0665